=== PATIENT | male | born 1985 | race American Indian/Alaskan Native ===

== ENCOUNTER 2016-06-09 09:22 | Emergency (ER) | payer MEDICARE ==
--- NOTE | 2016-06-09 11:08 | XRay Report ---
CHEST 2 VIEWS INDICATION: Chest pain. COMPARISON: None similar at this institution. FINDINGS: Frontal and lateral chest radiographs demonstrate normal cardiomediastinal silhouette. Clear lungs. Intact bones. EKG leads. CONCLUSION: No acute disease in the chest. Thank you for the opportunity to participate in this patient's care.
[2016-06-09 12:03] VITALS: BP 127/79
== END 2016-06-09 12:02 | disposition home or self-care (01) ==
LOC: ED 09:22
DX: R07.9 Chest pain, unspecified (principal)
CPT/HCPCS: 71020; 93005; 93010; 99283

== ENCOUNTER 2016-06-10 16:11 | Emergency (ER) | payer MEDICARE ==
[2016-06-10 16:34] VITALS: BP 123/76
[2016-06-10 16:55] LABS: Basophils % (Auto) 0.9 % (0.0-1.8); Eosinophils % (Auto) 3.9 % (0.0-4.3); Hematocrit 44.7 % (35.5-45.6); Hemoglobin 15.4 gm/dl (11.8-15.2); Mean Corpuscular HGB Conc 34 % (32-34); Mean Corpuscular Hemoglobin 28 pg (28-32); Mean Corpuscular Volume 83 fl (84-94); Platelet Count 252 K/mm3 (140-440); Red Blood Count 5.41 M/mm3 (3.65-5.03); Red Cell Distribution Width 13.1 % (13.2-15.2); White Blood Count 9.4 K/mm3 (4.5-11.0)
[2016-06-10 17:11] LABS: Anion Gap 16 mmol/L; Blood Urea Nitrogen 15 mg/dL (9-20); Calcium 8.9 mg/dL (8.4-10.2); Carbon Dioxide 24 mmol/L (22-30); Chloride 98.9 mmol/L (98-107); Glucose 95 mg/dL (75-100); Potassium 4.2 mmol/L (3.6-5.0); Sodium 135 mmol/L (137-145)
[2016-06-10 17:54] LABS: Urine Drugs of Abuse Note Disclamer
[2016-06-10 18:04] LABS: Bilirubin,Urine NEG (Negative); Blood,Urine NEG (Negative); Ketones,Urine TR mg/dL (Negative); Leukocyte Esterase,Urine NEG (Negative); Mucus,Urine FEW /HPF; Nitrite,Urine NEG (Negative); Protein,Urine <15 mg/dL mg/dL (Negative); Urobilinogen,Urine < 2.0 mg/dL (<2.0); WBC,Urine < 1.0 /HPF (0.0-6.0)
--- NOTE | 2016-06-13 01:55 | ED Elopement Review ---
ED Pt Elopement review - Results review Lab results: Laboratory Tests 06/10/16 06/10/16 06/10/16 16:39 16:39 16:39 WBC 9.4 RBC 5.41 H Hgb 15.4 H Hct 44.7 MCV 83 L MCH 28 MCHC 34 RDW 13.1 L Plt Count 252 Lymph % (Auto) 26.2 [place] % (Auto) 6.4 Eos % (Auto) 3.9 Baso % (Auto) 0.9 Lymph # 2.5 [place] # 0.6 Eos # 0.4 Baso # 0.1 Seg Neutrophils % 62.6 Seg Neutrophils # 5.9 Sodium 135 L Potassium 4.2 Chloride 98.9 Carbon Dioxide 24 Anion Gap 16 BUN 15 Creatinine 1.0 Estimated GFR > 60 BUN/Creatinine Ratio 15.00 Glucose 95 Calcium 8.9 Urine Color Urine Turbidity Urine pH Ur Specific [place] Urine Protein Urine Glucose (UA) Urine Ketones Urine Blood Urine Nitrite Urine Bilirubin Urine Urobilinogen Ur Leukocyte Esterase Urine WBC (Auto) Urine RBC (Auto) Urine Mucus Urine Opiates Screen Urine Methadone Screen Ur Barbiturates Screen Ur Phencyclidine Scrn Ur Amphetamines Screen U Benzodiazepines Scrn Urine Cocaine Screen U Marijuana (THC) Screen Drugs of Abuse Note Plasma/Serum Alcohol < 0.01 06/10/16 06/10/16 17:42 17:42 WBC RBC Hgb Hct MCV MCH MCHC RDW Plt Count Lymph % (Auto) [place] % (Auto) Eos % (Auto) Baso % (Auto) Lymph # [place] # Eos # Baso # Seg Neutrophils % Seg Neutrophils # Sodium Potassium Chloride Carbon Dioxide Anion Gap BUN Creatinine Estimated GFR BUN/Creatinine Ratio Glucose Calcium Urine Color Yellow Urine Turbidity Clear Urine pH 5.0 Ur Specific [place] 1.021 Urine Protein <15 mg/dl Urine Glucose (UA) Neg Urine Ketones Tr Urine Blood Neg Urine Nitrite Neg Urine Bilirubin Neg Urine Urobilinogen < 2.0 Ur Leukocyte Esterase Neg Urine WBC (Auto) < 1.0 Urine RBC (Auto) 2.0 Urine Mucus Few Urine Opiates Screen Presumptive negative Urine Methadone Screen Presumptive negative Ur Barbiturates Screen Presumptive negative Ur Phencyclidine Scrn Presumptive negative Ur Amphetamines Screen Presumptive negative U Benzodiazepines Scrn Presumptive negative Urine Cocaine Screen Presumptive negative U Marijuana (THC) Screen Presumptive negative Drugs of Abuse Note Disclamer Plasma/Serum Alcohol - Call Back decision Pt Call Back Decision: No action required
== END 2016-06-10 21:50 | disposition left against medical advice (07) ==
LOC: ED 16:11
DX: Z76.0 Encounter for issue of repeat prescription (principal); Z53.21 Procedure and treatment not carried out due to patient leaving prior to being seen by health care provider
CPT/HCPCS: 36415; 80048; 80307; 81001; 85025; G0480; 80320

== ENCOUNTER 2018-06-08 00:07 | Emergency (ER) | payer MEDICARE ==
[2018-06-08 00:31] LABS: Basophils # (Auto) 0.1 K/mm3 (0.0-0.1); Basophils % (Auto) 0.8 % (0.0-1.8); Eosinophils # (Auto) 0.6 K/mm3 (0.0-0.4); Eosinophils % (Auto) 5.9 % (0.0-4.3); Hematocrit 42.5 % (35.5-45.6); Hemoglobin 14.4 gm/dl (11.8-15.2); Lymphocytes # (Auto) 2.8 K/mm3 (1.2-5.4); Lymphocytes % (Auto) 29.8 % (13.4-35.0); Mean Corpuscular HGB Conc 34 % (32-34); Mean Corpuscular Volume 86 fl (84-94); Monocytes # (Auto) 0.8 K/mm3 (0.0-0.8); Platelet Count 270 K/mm3 (140-440); Red Blood Count 4.97 M/mm3 (3.65-5.03); Red Cell Distribution Width 13.7 % (13.2-15.2)
[2018-06-08 00:48] LABS: Bilirubin,Urine NEG (Negative); Blood,Urine NEG (Negative); Color,Urine Yellow (Yellow); Mucus,Urine 3+ /HPF
--- NOTE | 2018-06-08 00:50 | Emergency Department Report ---
ED Psych HPI - General Chief Complaint: Psych Stated Complaint: MENTAL HEALTH EVALUATION Time Seen by Provider: 06/08/18 00:38 Source: patient Mode of arrival: Ambulatory - History of Present Illness Initial Comments: Patient is 32 years old male with history of schizophrenia. Patient presented to the ER stating that he is hearing voices asking him to hurt himself and other people. When asked about a plan patient has stated that he is planning to get into a fight with other people. Patient with flights of ideas and loose association. MD Complaint: suicidal ideation Associated Psychiatric Symptoms: suicidal ideation, homicidal ideation, racing thoughts, auditory hallucinations History of same: Yes Quality: constant Associated Symptoms: denies other symptoms Treatments Prior to Arrival: none If Self Harm: admits thoughts of, has plan, self-inflicted trauma - Related Data Home Medications Medication Instructions Recorded Confirmed Last Taken Unobtainable 06/08/18 06/08/18 Unknown Allergies Allergy/AdvReac Type Severity Reaction Status Date / Time No Known Allergies Allergy Verified 06/09/16 09:59 ED Review of Systems ROS: Stated complaint: MENTAL HEALTH EVALUATION Other details as noted in HPI Comment: All other systems reviewed and negative Constitutional: denies: chills, fever Respiratory: denies: cough, orthopnea, shortness of breath, SOB with exertion, SOB at rest, wheezing Cardiovascular: denies: chest pain, palpitations, dyspnea on exertion Gastrointestinal: denies: abdominal pain, nausea, vomiting Genitourinary: denies: urgency, dysuria, frequency, hematuria, discharge Musculoskeletal: denies: back pain Neurological: denies: headache, weakness, numbness, paresthesias Psychiatric: auditory hallucinations, homicidal thoughts, suicidal thoughts ED Past Medical Hx - Past Medical History Previous Medical History?: Yes Hx Psychiatric Treatment: Yes - Surgical History Past Surgical History?: No - Social History Smoking Status: Current Every Day Smoker Substance Use Type: Alcohol - Medications Home Medications: Home Medications Medication Instructions Recorded Confirmed Last Taken Type Unobtainable 06/08/18 06/08/18 Unknown History ED Physical Exam - General Limitations: No Limitations General appearance: alert, in no apparent distress - Head Head exam: Present: atraumatic, normocephalic, normal inspection - Eye Eye exam: Present: normal appearance, PERRL - ENT ENT exam: Present: normal exam, normal orophraynx, mucous membranes moist - Neck Neck exam: Present: normal inspection, full ROM. Absent: tenderness, meningismus, lymphadenopathy, thyromegaly - Respiratory Respiratory exam: Present: normal lung sounds bilaterally. Absent: respiratory distress, wheezes, rales, rhonchi, stridor, chest wall tenderness, accessory muscle use, decreased breath sounds, prolonged expiratory - Cardiovascular Cardiovascular Exam: Present: regular rate, normal rhythm, normal heart sounds - GI/Abdominal GI/Abdominal exam: Present: soft, normal bowel sounds. Absent: distended, tenderness, guarding, rebound, rigid, organomegaly, mass, bruit, pulsatile mass, hernia - Extremities Exam Extremities exam: Present: normal inspection, full ROM, normal capillary refill - Back Exam Back exam: Present: normal inspection, full ROM. Absent: tenderness, CVA tenderness (R), CVA tenderness (L), muscle spasm - Neurological Exam Neurological exam: Present: alert, oriented X3, CN II-XII intact - Psychiatric Psychiatric exam: Present: normal mood, homicidal ideation, suicidal ideation. Absent: agitated, flat affect, manic - Skin Skin exam: Present: warm, intact, normal color ED Course Vital Signs 06/08/18 00:08 Temperature 99.5 F Pulse Rate 100 H Respiratory 18 Rate Blood Pressure 125/65 O2 Sat by Pulse 98 Oximetry ED Medical Decision Making - Lab Data Result diagrams: 06/08/18 00:16 06/08/18 00:16 - Medical Decision Making Patient is 32 years old male with history of schizophrenia. Patient presented to the ER stating that he is hearing voices asking him to hurt himself and other people. When asked about a plan patient has stated that he is planning to get into a fight with other people. Patient with flights of ideas and loose association. Patient with acute psychosis and active suicidal or homicidal thoughts. Patient is pending mental health assessment and placement. Patient is medically clear for inpatient psychiatric admission. Critical care attestation.: If time is entered above; I have spent that time in minutes in the direct care of this critically ill patient, excluding procedure time. ED Disposition Clinical Impression: Acute psychosis, Suicidal ideation, Homicidal ideation Disposition: [id number]/TX-[id number] PSY HOSP/PSY UNIT Is pt being admited?: No Condition: Stable
[2018-06-08 00:53] LABS: Amphetamine Screen,Urine PRESUMPTIVE NEGATIVE; Benzodiazepines Screen,Urine PRESUMPTIVE NEGATIVE; Cocaine Screen,Urine PRESUMPTIVE NEGATIVE; Methadone Screen,Urine PRESUMPTIVE NEGATIVE; Opiate Screen,Urine PRESUMPTIVE NEGATIVE
[2018-06-08 01:08] LABS: BUN/Creatinine Ratio 23; Blood Urea Nitrogen 18 mg/dL (9-20); Calcium 9.2 mg/dL (8.4-10.2); Hemolysis Index 9
[2018-06-08 01:42] LABS: Cannabinoid Screen,Urine PRESUMPTIVE POSITIVE
[2018-06-08 08:16] VITALS: BP 113/69
--- NOTE | 2018-06-08 10:27 | Consultation ---
History of Present Illness - Reason for Consult Consult date: 06/08/18 Reason for consult: Mental Health Evaluation Requesting physician: NOAH AVILES - Chief Complaint Chief complaint: "It's my head" - History of Present Psychiatric Illness 32 y.o. AA male who presented to the ER for AH's. Today the patient is cooperative, but disorganized during the assessment. He stated that his head feel "frozen" because of the voices he is hearing. Throughout the interview, the patient was observed putting both hand near his ears, possibly responding to some type of stimuli. He stated that the voices was telling him to do unsafe things yesterday, so he decided to cone to the hospital. He stated that he receive the Risperdal injection every 3 weeks. He denies HI's and VH's. He would not confirm or deny SI's. He denies a poor appetite, but acknowledged that his sleep have been erratic. He denies recreational drug use, but he was positive for marijuana. He denies alcohol consumption (etoh). Medications and Allergies Allergies Allergy/AdvReac Type Severity Reaction Status Date / Time No Known Allergies Allergy Verified 06/09/16 09:59 Home Medications Medication Instructions Recorded Confirmed Last Taken Type Unobtainable 06/08/18 06/08/18 Unknown History Past psychiatric history - Past Medical History Past Medical History: No medical history Past Surgical History: No surgical history - past Psychiatric treatment and history psychiatric treatment history: Several inpatient psy settings. [facility] - Social History Social history: other (Homeless) Mental Status Exam - Vital signs Last Vital Signs Temp 97.5 F L 06/08/18 07:30 Pulse 89 06/08/18 07:30 Resp 18 06/08/18 07:30 BP 113/69 06/08/18 07:30 Pulse Ox 99 06/08/18 07:30 - Exam Narrative exam: MSE: Appearance: cooperative Behavior: poor eye contact Speech: regular rate and loud tone Mood: preoccupied Affect: flat Thought Process: disorganized Thought Content: denies SI/HI's and VH's, delusional Motor Activity: sitting up in the bed Cognition: A/O x3 Insight: poor Judgment: poor Results Result Diagrams: 06/08/18 00:16 06/08/18 00:16 Abnormal lab results 06/08/18 06/08/18 06/08/18 Range/Units 00:16 00:16 00:16 [place] % (Auto) 9.0 H (0.0-7.3) % Eos % (Auto) 5.9 H (0.0-4.3) % Eos # 0.6 H (0.0-0.4) K/mm3 Ur Specific [place] (1.003-1.030) Salicylates < 0.3 L (2.8-20.0) mg/dL Acetaminophen < 5.0 L (10.0-30.0) ug/mL 06/08/18 Range/Units 00:35 [place] % (Auto) (0.0-7.3) % Eos % (Auto) (0.0-4.3) % Eos # (0.0-0.4) K/mm3 Ur Specific [place] 1.038 H (1.003-1.030) Salicylates (2.8-20.0) mg/dL Acetaminophen (10.0-30.0) ug/mL All other labs normal. Assessment and Plan Assessment and plan: Impression: Unspecified Psychosis. Cannabis Use DO. Today the patient is cooperative, but disorganized during the assessment. The patient is experiencing perceptual disturbances. DDx: Schizophrenia, Substance Induced Psychosis Recommendation/Plan: Continue 1013. Dispo: The patient was accepted at [facility] for inpatient psy services. Will staff with Dr Rachele Lambert.
== END 2018-06-08 11:40 ==
LOC: ED 00:07
DX: F29 Unspecified psychosis not due to a substance or known physiological condition (principal); F12.10 Cannabis abuse, uncomplicated; F20.9 Schizophrenia, unspecified
CPT/HCPCS: 36415; 80048; 80307; 81001; 85025; 99285; G0480; 80320

== ENCOUNTER 2018-06-21 07:36 | Emergency (ER) | payer MEDICARE ==
[2018-06-21 07:46] VITALS: BP 126/78
[2018-06-21 08:19] LABS: Basophils # (Auto) 0.1 K/mm3 (0.0-0.1); Basophils % (Auto) 0.7 % (0.0-1.8); Eosinophils # (Auto) 0.5 K/mm3 (0.0-0.4); Eosinophils % (Auto) 4.7 % (0.0-4.3); Hematocrit 41.7 % (35.5-45.6); Hemoglobin 13.9 gm/dl (11.8-15.2); Lymphocytes # (Auto) 1.9 K/mm3 (1.2-5.4); Lymphocytes % (Auto) 16.8 % (13.4-35.0); Mean Corpuscular HGB Conc 33 % (32-34); Mean Corpuscular Volume 85 fl (84-94); Monocytes # (Auto) 1.1 K/mm3 (0.0-0.8); Monocytes % (Auto) 9.9 % (0.0-7.3); Platelet Count 294 K/mm3 (140-440); Red Cell Distribution Width 13.6 % (13.2-15.2)
[2018-06-21 08:40] LABS: BUN/Creatinine Ratio 13; Blood Urea Nitrogen 13 mg/dL (9-20); Calcium 9.1 mg/dL (8.4-10.2); Hemolysis Index 9
[2018-06-21 08:52] LABS: Bilirubin,Urine NEG (Negative); Blood,Urine NEG (Negative); Color,Urine Yellow (Yellow); Mucus,Urine 1+ /HPF; Protein,Urine <15 mg/dL mg/dL (Negative); Urobilinogen,Urine < 2.0 mg/dL (<2.0)
[2018-06-21 09:08] LABS: Amphetamine Screen,Urine PRESUMPTIVE NEGATIVE; Benzodiazepines Screen,Urine PRESUMPTIVE NEGATIVE; Cocaine Screen,Urine PRESUMPTIVE NEGATIVE; Methadone Screen,Urine PRESUMPTIVE NEGATIVE; Opiate Screen,Urine PRESUMPTIVE NEGATIVE
[2018-06-21 09:20] LABS: Cannabinoid Screen,Urine PRESUMPTIVE POSITIVE
== END 2018-06-21 12:49 | disposition left against medical advice (07) ==
LOC: ED 07:36
DX: F20.0 Paranoid schizophrenia (principal); Z53.21 Procedure and treatment not carried out due to patient leaving prior to being seen by health care provider
CPT/HCPCS: 36415; 80048; 80307; 81001; 85025; 93005; 93010; G0480; 80320

== ENCOUNTER 2018-09-09 06:33 | Emergency (ER) | payer MEDICARE ==
[2018-09-09 07:02] LABS: Basophils # (Auto) 0.1 K/mm3 (0.0-0.1); Basophils % (Auto) 0.9 % (0.0-1.8); Eosinophils # (Auto) 0.6 K/mm3 (0.0-0.4); Eosinophils % (Auto) 6.3 % (0.0-4.3); Hematocrit 43.7 % (35.5-45.6); Hemoglobin 14.9 gm/dl (11.8-15.2); Lymphocytes # (Auto) 2.7 K/mm3 (1.2-5.4); Lymphocytes % (Auto) 29.3 % (13.4-35.0); Mean Corpuscular HGB Conc 34 % (32-34); Mean Corpuscular Volume 85 fl (84-94); Monocytes # (Auto) 0.8 K/mm3 (0.0-0.8); Monocytes % (Auto) 8.9 % (0.0-7.3); Platelet Count 247 K/mm3 (140-440); Red Blood Count 5.12 M/mm3 (3.65-5.03); Red Cell Distribution Width 13.6 % (13.2-15.2)
[2018-09-09 07:16] LABS: BUN/Creatinine Ratio 10; Blood Urea Nitrogen 10 mg/dL (9-20); Calcium 9.4 mg/dL (8.4-10.2); Hemolysis Index 23
[2018-09-09 07:16] LABS: Bilirubin,Urine NEG (Negative); Blood,Urine NEG (Negative); Color,Urine Colorless (Yellow); Protein,Urine <15 mg/dL mg/dL (Negative); Urobilinogen,Urine < 2.0 mg/dL (<2.0); WBC,Urine < 1.0 /HPF (0.0-6.0)
[2018-09-09 07:28] LABS: Amphetamine Screen,Urine PRESUMPTIVE NEGATIVE; Benzodiazepines Screen,Urine PRESUMPTIVE NEGATIVE; Cannabinoid Screen,Urine PRESUMPTIVE NEGATIVE; Cocaine Screen,Urine PRESUMPTIVE NEGATIVE; Methadone Screen,Urine PRESUMPTIVE NEGATIVE; Opiate Screen,Urine PRESUMPTIVE NEGATIVE
[2018-09-09] MEDS ORDERED: RisperDAL PO ONE (08:16)
[2018-09-09] MEDS ORDERED: BENADRYL PO ONE (08:17)
--- NOTE | 2018-09-09 12:52 | Consultation ---
History of Present Illness - Reason for Consult Consult date: 09/09/18 Reason for consult: Mental Health Evaluation Requesting physician: KESHAWN MOORE - Chief Complaint Chief complaint: 'I want mental health help" - History of Present Psychiatric Illness 33 y.o. AA male who presented to the ER because he want to be transferred to a mental health facility. This patient is known to me. Today the patient is calm and cooperative during the assessment. He stated that he is hearing voices sometimes, but denies that the voices are telling him to do unsafe acts. He stated that he has been compliant with his Risperdal, but felt like he need to be "stabilized" so he came to the ER. He stated that he is homeless, but denies SI/HI's and VH's. He denies erratic sleep and a poor appetite. The patient is known to smoke marijuana, but his UDS was negative. He denies alcohol consumption (etoh). Medications and Allergies Allergies Allergy/AdvReac Type Severity Reaction Status Date / Time No Known Allergies Allergy Verified 06/09/16 09:59 Home Medications Medication Instructions Recorded Confirmed Last Taken Type Unobtainable 06/08/18 06/08/18 Unknown History Past psychiatric history - Past Medical History Past Medical History: No medical history Past Surgical History: No surgical history - past Psychiatric treatment and history psychiatric treatment history: inpatient psy services in the past. Denies a fam psy hx. Mental Status Exam - Vital signs Last Vital Signs Temp 97.7 F 09/09/18 06:41 Pulse 73 09/09/18 06:41 Resp 19 09/09/18 08:07 BP 124/86 09/09/18 06:41 Pulse Ox 100 09/09/18 08:07 - Exam Narrative exam: MSE: Appearance: calm, cooperative Behavior: regular eye contact Speech: regular rate and loud tone Mood: "okay" Affect: congruent to mood Thought Process: circumstantial Thought Content: denies SI/HI's and VH's, intermittent AH's Motor Activity: sitting up in the bed Cognition: A/O x3 Insight: variable to fair Judgment: fair Results Result Diagrams: 09/09/18 06:47 09/09/18 06:47 Abnormal lab results 09/09/18 09/09/18 09/09/18 Range/Units 06:47 06:47 06:47 RBC 5.12 H (3.65-5.03) M/mm3 [place] % (Auto) 8.9 H (0.0-7.3) % Eos % (Auto) 6.3 H (0.0-4.3) % Eos # 0.6 H (0.0-0.4) K/mm3 Salicylates < 0.3 L (2.8-20.0) mg/dL Acetaminophen < 5.0 L (10.0-30.0) ug/mL All other labs normal. Assessment and Plan Assessment and plan: Impression: Schizophrenia. Today the patient is calm and cooperative during the assessment. DDx: Schizophrenia Recommendation/Plan: Start home medication Risperdal 1 mg PO HS for schizophrenia. Discussed the possible metabolic side effects of Risperdal with the patient., he verbalized understanding. Dispo: The patient was referred to [facility] Partial Hospitalization (PHP). This is a voluntary program. Will staff with Dr Rachele Lambert.
--- NOTE | 2018-09-09 13:15 | Emergency Department Report ---
ED Psych HPI - General Chief Complaint: Medical Clearance Stated Complaint: MH EVAL/HEAD INJURY Time Seen by Provider: 09/09/18 08:05 Source: patient Mode of arrival: Ambulatory - History of Present Illness Initial Comments: This is a 33-year-old male who states he would like to be admitted to a psychiatric facility. He admits he is homeless at this point having had a dispute with his family perhaps. He is not compliant with his Restoril which he states he was taking 3 mg twice a day with Benadryl. He states he hears voices but does not have any command hallucinations. He is not suicidal. He is not hallucinating at the time of my encounter. He is cooperative. MD Complaint: other (schizophrenia) -: year(s) Associated Psychiatric Symptoms: auditory hallucinations History of same: Yes Quality: intermittent Improves With: none Worsens With: none Context: not taking psychiatric Associated Symptoms: denies other symptoms Treatments Prior to Arrival: none - Related Data Home Medications Medication Instructions Recorded Confirmed Last Taken Unobtainable 06/08/18 06/08/18 Unknown Allergies Allergy/AdvReac Type Severity Reaction Status Date / Time No Known Allergies Allergy Verified 06/09/16 09:59 ED Review of Systems ROS: Stated complaint: MH EVAL/HEAD INJURY Other details as noted in HPI Constitutional: denies: chills, fever Eyes: denies: eye pain, eye discharge, vision change ENT: denies: ear pain, throat pain Respiratory: denies: cough, shortness of breath, wheezing Cardiovascular: denies: chest pain, palpitations Endocrine: no symptoms reported Gastrointestinal: denies: abdominal pain, nausea, diarrhea Genitourinary: denies: urgency, dysuria Musculoskeletal: denies: back pain, joint swelling, arthralgia Skin: denies: rash, lesions Neurological: denies: headache, weakness, paresthesias Psychiatric: auditory hallucinations. denies: anxiety, depression Hematological/Lymphatic: denies: easy bleeding, easy bruising ED Past Medical Hx - Past Medical History Previous Medical History?: Yes Hx Psychiatric Treatment: Yes (schizophrenia) - Surgical History Past Surgical History?: No - Social History Smoking Status: Current Every Day Smoker Substance Use Type: None - Medications Home Medications: Home Medications Medication Instructions Recorded Confirmed Last Taken Type Unobtainable 06/08/18 06/08/18 Unknown History ED Physical Exam - General Limitations: No Limitations General appearance: alert, in no apparent distress - Head Head exam: Present: atraumatic, normocephalic - Eye Eye exam: Present: normal appearance. Absent: scleral icterus - ENT ENT exam: Present: mucous membranes moist - Neck Neck exam: Present: normal inspection - Respiratory Respiratory exam: Present: normal lung sounds bilaterally. Absent: respiratory distress - Cardiovascular Cardiovascular Exam: Present: regular rate, normal rhythm. Absent: systolic murmur, diastolic murmur, rubs, gallop - GI/Abdominal GI/Abdominal exam: Present: soft, normal bowel sounds. Absent: distended, tenderness, guarding, rebound, rigid - Rectal Rectal exam: Present: deferred - Extremities Exam Extremities exam: Present: normal inspection - Back Exam Back exam: Present: normal inspection - Neurological Exam Neurological exam: Present: alert, oriented X3, CN II-XII intact. Absent: motor sensory deficit - Psychiatric Psychiatric exam: Present: normal mood, flat affect - Skin Skin exam: Present: warm, dry, intact, normal color. Absent: rash ED Course Vital Signs 09/09/18 09/09/18 06:41 08:07 Temperature 97.7 F Pulse Rate 73 Respiratory 18 19 Rate Blood Pressure 124/86 O2 Sat by Pulse 100 100 Oximetry - Reevaluation(s) Reevaluation #1: Mother STATES patient will be discharged to a partial treatment program at [place]. 09/09/18 13:14 ED Medical Decision Making - Lab Data Result diagrams: 09/09/18 06:47 09/09/18 06:47 Laboratory Results - last 24 hr 09/09/18 09/09/18 09/09/18 06:47 06:47 06:47 WBC RBC Hgb Hct MCV MCH MCHC RDW Plt Count Lymph % (Auto) [place] % (Auto) Eos % (Auto) Baso % (Auto) Lymph # [place] # Eos # Baso # Seg Neutrophils % Seg Neutrophils # Sodium 138 Potassium 4.4 Chloride 100.3 Carbon Dioxide 26 Anion Gap 16 BUN 10 Creatinine 1.0 Estimated GFR > 60 BUN/Creatinine Ratio 10 Glucose 95 Calcium 9.4 Urine Color Urine Turbidity Urine pH Ur Specific [place] Urine Protein Urine Glucose (UA) Urine Ketones Urine Blood Urine Nitrite Urine Bilirubin Urine Urobilinogen Ur Leukocyte Esterase Urine WBC (Auto) Urine RBC (Auto) U Epithel Cells (Auto) Salicylates < 0.3 L Urine Opiates Screen Urine Methadone Screen Acetaminophen < 5.0 L Ur Barbiturates Screen Ur Phencyclidine Scrn Ur Amphetamines Screen U Benzodiazepines Scrn Urine Cocaine Screen U Marijuana (THC) Screen Drugs of Abuse Note Plasma/Serum Alcohol 09/09/18 09/09/18 09/09/18 06:47 06:47 Unknown WBC 9.2 RBC 5.12 H Hgb 14.9 Hct 43.7 MCV 85 MCH 29 MCHC 34 RDW 13.6 Plt Count 247 Lymph % (Auto) 29.3 [place] % (Auto) 8.9 H Eos % (Auto) 6.3 H Baso % (Auto) 0.9 Lymph # 2.7 [place] # 0.8 Eos # 0.6 H Baso # 0.1 Seg Neutrophils % 54.6 Seg Neutrophils # 5.0 Sodium Potassium Chloride Carbon Dioxide Anion Gap BUN Creatinine Estimated GFR BUN/Creatinine Ratio Glucose Calcium Urine Color Colorless Urine Turbidity Clear Urine pH 6.0 Ur Specific [place] 1.004 Urine Protein <15 mg/dl Urine Glucose (UA) Neg Urine Ketones Neg Urine Blood Neg Urine Nitrite Neg Urine Bilirubin Neg Urine Urobilinogen < 2.0 Ur Leukocyte Esterase Neg Urine WBC (Auto) < 1.0 Urine RBC (Auto) 1.0 U Epithel Cells (Auto) < 1.0 Salicylates Urine Opiates Screen Urine Methadone Screen Acetaminophen Ur Barbiturates Screen Ur Phencyclidine Scrn Ur Amphetamines Screen U Benzodiazepines Scrn Urine Cocaine Screen U Marijuana (THC) Screen Drugs of Abuse Note Plasma/Serum Alcohol < 0.01 09/09/18 Unknown WBC RBC Hgb Hct MCV MCH MCHC RDW Plt Count Lymph % (Auto) [place] % (Auto) Eos % (Auto) Baso % (Auto) Lymph # [place] # Eos # Baso # Seg Neutrophils % Seg Neutrophils # Sodium Potassium Chloride Carbon Dioxide Anion Gap BUN Creatinine Estimated GFR BUN/Creatinine Ratio Glucose Calcium Urine Color Urine Turbidity Urine pH Ur Specific [place] Urine Protein Urine Glucose (UA) Urine Ketones Urine Blood Urine Nitrite Urine Bilirubin Urine Urobilinogen Ur Leukocyte Esterase Urine WBC (Auto) Urine RBC (Auto) U Epithel Cells (Auto) Salicylates Urine Opiates Screen Presumptive negative Urine Methadone Screen Presumptive negative Acetaminophen Ur Barbiturates Screen Presumptive negative Ur Phencyclidine Scrn Presumptive negative Ur Amphetamines Screen Presumptive negative U Benzodiazepines Scrn Presumptive negative Urine Cocaine Screen Presumptive negative U Marijuana (THC) Screen Presumptive negative Drugs of Abuse Note Disclamer Plasma/Serum Alcohol Critical care attestation.: If time is entered above; I have spent that time in minutes in the direct care of this critically ill patient, excluding procedure time. ED Disposition Clinical Impression: Schizophrenia Qualifiers: Schizophrenia type: unspecified Qualified Code(s): F20.9 - Schizophrenia, unspecified Disposition: DC-01 TO HOME OR SELFCARE Is pt being admited?: No Does the pt Need Aspirin: No Condition: Stable Instructions: Schizophrenia (ED) Additional Instructions: Further care at the partial treatment program. Referrals: KENNY MALDONADO MD [Primary Care Provider] - 3-5 Days Time of Disposition: 13:15
[2018-09-09 13:49] VITALS: BP 122/70
[2018-09-09] MEDS ORDERED: RisperDAL PO SCH (22:00)
[2018-09-10] MEDS ORDERED: RisperDAL PO SCH (22:00)
== END 2018-09-09 13:49 | disposition home or self-care (01) ==
LOC: EEVIPCON 06:33 → ED 06:33
DX: F20.9 Schizophrenia, unspecified (principal); F17.200 Nicotine dependence, unspecified, uncomplicated
CPT/HCPCS: 36415; 80048; 80307; 81001; 85025; 99284; G0480; 80320

== ENCOUNTER 2018-09-13 11:47 | Emergency (ER) | payer MEDICARE ==
--- NOTE | 2018-09-13 12:00 | Emergency Department Report ---
Blank Doc - Documentation Documentation: This is a 33-year-old male that presents with URI symptoms. This initial assessment/diagnostic orders/clinical plan/treatment(s) is/are subject to change based on patient's health status, clinical progression and re- assessment by fellow clinical providers in the ED. Further treatment and workup at subsequent clinical providers discretion. Patient/guardians urged not to elope from the ED as their condition may be serious if not clinically assessed and managed. Initial orders include: 1- Patient sent to [facility] for further evaluation and treatment 2- CXR
[2018-09-13 12:01] VITALS: BP 128/66
--- NOTE | 2018-09-13 12:58 | XRay Report ---
XRAY CHEST TWO VIEWS: 09/13/18 11:47:00 CLINICAL: Cough. COMPARISON: 06/09/16 FINDINGS: Normal heart and pulmonary vasculature. The lungs are normally expanded and clear except for a few tiny calcified granulomata in the right midlung. No airspace disease or pleural effusion.The bones and soft tissues are unremarkable. IMPRESSION: No acute cardiopulmonary process.Old granulomatous disease.
--- NOTE | 2018-09-13 15:28 | Emergency Department Report ---
Minor Respiratory - HPI Chief Complaint: Upper Respiratory Infection Stated Complaint: CHEST PAIN/COUGH/RUNNY NOSE Time Seen by Provider: 09/13/18 11:59 Duration: 2 Days Minor Respiratory: Yes Rhinorrhea, Yes Able to Tolerate Fluids, Yes Cough, No Sore Throat, No Sick Contacts, No Hemoptysis, No Chest Pain, No Shortness of Breath, No Fever Other History: 33-year-old male with a history of schizophrenia this currently Risperdal 3 mg and Benadryl 50 mg a day comes in for complaint of cough and cold symptoms 2 days. Patient reports he has taken nothing for symptoms. Patient denies any fever chills or nausea or vomiting. ED Review of Systems ROS: Stated complaint: CHEST PAIN/COUGH/RUNNY NOSE Other details as noted in HPI ENT: congestion, other (rhinorrhea) Respiratory: cough ED Past Medical Hx - Past Medical History Previous Medical History?: Yes Hx Psychiatric Treatment: Yes (schizophrenia) - Surgical History Past Surgical History?: No - Social History Smoking Status: Current Every Day Smoker Substance Use Type: Alcohol - Medications Home Medications: Home Medications Medication Instructions Recorded Confirmed Last Taken Type Benzonatate [Tessalon Perles] 100 mg PO Q8HR #15 capsule 09/13/18 Unknown Rx Cetirizine HCl [Allergy Relief] 10 mg PO QDAY #15 capsule 09/13/18 Unknown Rx Minor Respiratory Exam - Exam General: Vital signs noted. No distress. Alert and acting appropriately. HEENT: Yes Moist Mucous Membranes, No Pharyngeal Erythema, No Pharyngeal Exudates, No Rhinorrhea, No Conjuctival Injection, No Frontal Tenderness, No Maxillary Tenderness Ear: Neither TM Bulge, Neither TM Erythema, Neither EAC Pain, Neither EAC Discharge Neck: Yes Supple, No Adenopathy Lungs: Yes Good Air Exchange, No Wheezes, No Ronchi, No Stridor, No Cough, No Labored Respirations, No Retractions, No Use of Accessory Muscles, No Other Abnormal Lung Sounds Heart: Yes Regular, No Murmur Abdomen: Yes Normal Bowel Sounds, No Tenderness, No Peritoneal Signs Neurologic: Alert and oriented, no deficits. Musculoskeletal: Unremarkable. ED Course Vital Signs 09/13/18 11:59 Temperature 99.1 F Pulse Rate 125 H Respiratory 19 Rate Blood Pressure 128/66 O2 Sat by Pulse 99 Oximetry ED Medical Decision Making - Radiology Data Radiology results: report reviewed Patient: KEN KEANE JUNIOR MR#: [id number] : 1985 Acct:[id number] Age/Sex: 33 / M ADM Date: 09/13/18 Loc: ED Attending Dr: Ordering Physician: NANETTE REYES NP Date of Service: 09/13/18 Procedure(s): XR chest routine 2V Accession Number(s): [id number] cc: NANETTE REYES NP Fluoro Time In Minutes: XRAY CHEST TWO VIEWS: 09/13/18 11:47:00 CLINICAL: Cough. COMPARISON: 06/09/16 FINDINGS: Normal heart and pulmonary vasculature. The lungs are normally expanded and clear except for a few tiny calcified granulomata in the right midlung. No airspace disease or pleural effusion.The bones and soft tissues are unremarkable. IMPRESSION: No acute cardiopulmonary process.Old granulomatous disease. Transcribed By: REF Dictated By: KESHAWN JOAQUIN MD Electronically Authenticated By: KESHAWN JOAQUIN MD Signed Date/Time: 09/13/18 1257 DD/ 1256 TD/TT: 09/13/18 1257 Critical care attestation.: If time is entered above; I have spent that time in minutes in the direct care of this critically ill patient, excluding procedure time. ED Disposition Clinical Impression: Allergic rhinitis, Cough in adult patient Disposition: DC-01 TO HOME OR SELFCARE Is pt being admited?: No Does the pt Need Aspirin: No Condition: Stable Instructions: Allergic Rhinitis (ED), Antihistamine/Antitussive (By mouth) Additional Instructions: Take medications as prescribed. Follow-up to primary care provider if his symptoms persist or gets worse. Prescriptions: Cetirizine HCl [Allergy Relief] 10 mg PO QDAY #15 capsule Benzonatate [Tessalon Perles] 100 mg PO Q8HR #15 capsule Referrals: ROCCO WELLS MD [Primary Care Provider] - 3-5 Days
[2018-09-13] MEDS ORDERED: TESSALON PERLES PO ONE (15:44)
== END 2018-09-13 16:10 | disposition home or self-care (01) ==
LOC: ED 11:47
DX: J30.9 Allergic rhinitis, unspecified (principal); F17.200 Nicotine dependence, unspecified, uncomplicated
CPT/HCPCS: 71046; 99283

== ENCOUNTER 2018-12-08 20:21 | Emergency (ER) | payer MEDICARE ==
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
[2018-12-08 21:02] VITALS: BP 95/71
[2018-12-08 21:36] LABS: Basophils # (Auto) 0.1 K/mm3 (0.0-0.1); Basophils % (Auto) 0.7 % (0.0-1.8); Eosinophils # (Auto) 0.3 K/mm3 (0.0-0.4); Eosinophils % (Auto) 3.5 % (0.0-4.3); Hematocrit 44.8 % (35.5-45.6); Hemoglobin 15.2 gm/dl (11.8-15.2); Lymphocytes # (Auto) 2.1 K/mm3 (1.2-5.4); Lymphocytes % (Auto) 20.8 % (13.4-35.0); Mean Corpuscular HGB Conc 34 % (32-34); Mean Corpuscular Volume 83 fl (84-94); Monocytes # (Auto) 0.8 K/mm3 (0.0-0.8); Monocytes % (Auto) 8.4 % (0.0-7.3); Platelet Count 275 K/mm3 (140-440); Red Blood Count 5.37 M/mm3 (3.65-5.03); Red Cell Distribution Width 13.8 % (13.2-15.2)
[2018-12-08 21:52] LABS: Alanine Aminotransferase 19 units/L (7-56); Albumin 4.6 g/dL (3.9-5); BUN/Creatinine Ratio 11; Blood Urea Nitrogen 9 mg/dL (9-20); Calcium 9.4 mg/dL (8.4-10.2); Hemolysis Index 6
--- NOTE | 2018-12-08 22:37 | Cat Scan Report ---
CT HEAD WITHOUT CONTRAST INDICATION: headache TECHNIQUE: All CT scans at this location are performed using CT dose reduction for ALARA by means of automated exposure control. COMPARISON: None available. FINDINGS: BRAIN: No hemorrhage or mass effect are seen. No evidence of acute infarction is noted. ORBITS: Normal as visualized. SOFT TISSUES OF HEAD: Normal. CALVARIUM: Normal. VISUALIZED PARANASAL SINUSES AND MASTOID AIR CELLS: Clear. ADDITIONAL FINDINGS: None. IMPRESSION: No acute intracranial abnormality. Signer Name: Gregory Mcclelland MD Signed: 12/08/2018 10:33 PM Workstation Name: [id number]
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
== END 2018-12-08 22:59 | disposition home or self-care (01) ==
LOC: ED 20:21
DX: S09.90XA Unspecified injury of head, initial encounter (principal); F20.9 Schizophrenia, unspecified; Z79.899 Other long term (current) drug therapy; Y04.8XXA Assault by other bodily force, initial encounter; Y93.89 Activity, other specified; Y92.89 Other specified places as the place of occurrence of the external cause; Y99.8 Other external cause status
CPT/HCPCS: 36415; 70450; 80053; 85025; 93005; 93010; 99284

== ENCOUNTER 2019-09-05 16:22 | Emergency (ER) | payer MEDICARE | END 2019-09-05 18:15 | disposition left against medical advice (07) | LOC: ED 16:22 | DX: F20.9 Schizophrenia, unspecified (principal); Z53.21 Procedure and treatment not carried out due to patient leaving prior to being seen by health care provider ==

== ENCOUNTER 2020-08-10 16:00 | Emergency (ER) | payer MEDICARE ==
[2020-08-10 16:47] VITALS: BP 121/69
[2020-08-10 17:11] LABS: Bilirubin,Urine NEG (Negative); Blood,Urine NEG (Negative); Color,Urine Amber (Yellow); Mucus,Urine 3+ /HPF
[2020-08-10 17:19] LABS: Amphetamine Screen,Urine Negative; Benzodiazepines Screen,Urine Negative; Cocaine Screen,Urine Negative; Methadone Screen,Urine Negative; Opiate Screen,Urine Negative
[2020-08-10 17:22] LABS: Basophils # (Auto) 0.1 K/mm3 (0.0-0.1); Basophils % (Auto) 0.9 % (0.0-1.8); Eosinophils # (Auto) 0.2 K/mm3 (0.0-0.4); Eosinophils % (Auto) 2.1 % (0.0-4.3); Hematocrit 40.5 % (35.5-45.6); Hemoglobin 13.8 gm/dl (11.8-15.2); Lymphocytes # (Auto) 2.1 K/mm3 (1.2-5.4); Lymphocytes % (Auto) 24.2 % (13.4-35.0); Mean Corpuscular HGB Conc 34 % (32-34); Mean Corpuscular Volume 87 fl (84-94); Monocytes # (Auto) 0.9 K/mm3 (0.0-0.8); Monocytes % (Auto) 10.8 % (0.0-7.3); Platelet Count 349 K/mm3 (140-440); Red Blood Count 4.68 M/mm3 (3.65-5.03)
[2020-08-10 17:31] LABS: Cannabinoid Screen,Urine Positive
[2020-08-10 17:44] LABS: Alanine Aminotransferase 14 units/L (7-56); Albumin 4.1 g/dL (3.9-5); BUN/Creatinine Ratio 8; Blood Urea Nitrogen 8 mg/dL (9-20); Calcium 8.6 mg/dL (8.4-10.2); Hemolysis Index 4
--- NOTE | 2020-08-10 17:59 | Emergency Department Report ---
ED General Adult HPI - General Chief complaint: High BP Stated complaint: HYPERTENSIVE Time Seen by Provider: 08/10/20 16:48 Source: patient Mode of arrival: Ambulatory Limitations: No Limitations - History of Present Illness Initial comments: Patient is a 35-year-old male presents emergency room for medical clearance for [place]. He states he was evaluated there today and was advised that he needed clearance. He states he was told his blood pressure was elevated. His blood pressure is completely normal here. He denies any history of hyperten xavier. Patient denies any physical complaints at this time. He has a past medical history of schizophrenia. He denies any SI or HI. No allergies to medications. - Related Data Previous Rx's Medication Instructions Recorded Last Taken Type Benzonatate [Tessalon Perles] 100 mg PO Q8HR #15 capsule 09/13/18 Unknown Rx Cetirizine HCl [Allergy Relief] 10 mg PO QDAY #15 capsule 09/13/18 Unknown Rx Naproxen [Naprosyn] 500 mg PO BID #14 tablet 12/08/18 Unknown Rx Allergies Allergy/AdvReac Type Severity Reaction Status Date / Time No Known Allergies Allergy Verified 06/09/16 09:59 ED Review of Systems ROS: Stated complaint: HYPERTENSIVE Other details as noted in HPI Comment: All other systems reviewed and negative ED Past Medical Hx - Past Medical History Previous Medical History?: Yes Hx Psychiatric Treatment: Yes (schizophrenia) - Social History Smoking Status: Never Smoker Substance Use Type: None - Medications Home Medications: Home Medications Medication Instructions Recorded Confirmed Last Taken Type Benzonatate [Tessalon Perles] 100 mg PO Q8HR #15 capsule 09/13/18 Unknown Rx Cetirizine HCl [Allergy Relief] 10 mg PO QDAY #15 capsule 09/13/18 Unknown Rx Naproxen [Naprosyn] 500 mg PO BID #14 tablet 12/08/18 Unknown Rx ED Physical Exam - General Limitations: No Limitations General appearance: alert, in no apparent distress - Head Head exam: Present: atraumatic, normocephalic - Eye Eye exam: Present: normal appearance - ENT ENT exam: Present: mucous membranes moist - Respiratory Respiratory exam: Present: normal lung sounds bilaterally. Absent: respiratory distress, wheezes, rales, rhonchi, stridor, chest wall tenderness, accessory muscle use, decreased breath sounds, prolonged expiratory - Cardiovascular Cardiovascular Exam: Present: regular rate, normal rhythm, normal heart sounds. Absent: systolic murmur, diastolic murmur, rubs, gallop - Neurological Exam Neurological exam: Present: alert, oriented X3 - Psychiatric Psychiatric exam: Present: normal affect, normal mood - Skin Skin exam: Present: warm, dry, intact ED Course Vital Signs 08/10/20 16:46 Temperature 98.0 F Pulse Rate 95 H Respiratory 20 Rate Blood Pressure 121/69 [Right] O2 Sat by Pulse 99 Oximetry ED Medical Decision Making - Lab Data Result diagrams: 08/10/20 17:12 08/10/20 17:12 - Medical Decision Making Patient is a 35-year-old male presents emergency room for medical clearance for [place]. He states he was evaluated there today and was advised that he needed clearance. He states he was told his blood pressure was elevated. His blood pressure is completely normal here. He denies any history of hypertension. Patient denies any physical complaints at this time. He has a past medical history of schizophrenia. He denies any SI or HI. No allergies to medications. Vitals are normal. No abnormality on physical examination as documented in chart. Labs are stable. UDS is positive for marijuana. UA without evidence of UTI. Patient is medically clear at this time. Discussed strict return precautions. Discussed primary care follow-up. Advised to return the emergency room for any new or worsening symptoms. Critical care attestation.: If time is entered above; I have spent that time in minutes in the direct care of this critically ill patient, excluding procedure time. ED Disposition Clinical Impression: General medical examination, Marijuana use Disposition: - TO HOME OR SELFCARE Is pt being admited?: No Does the pt Need Aspirin: No Condition: Stable Additional Instructions: You are medically clear at this time Referrals: your, primary care doctor [Other] - 2-3 Days Time of Disposition: 17:58 Print Language: TELUGU
== END 2020-08-10 18:51 | disposition home or self-care (01) ==
LOC: ED 16:00
DX: F12.10 Cannabis abuse, uncomplicated (principal); Z00.00 Encounter for general adult medical examination without abnormal findings; F20.9 Schizophrenia, unspecified; Z79.899 Other long term (current) drug therapy
CPT/HCPCS: 36415; 80053; 80307; 80320; 81001; 85025; G0480